=== PATIENT | male | born 1990 | race Caucasian/White ===

== ENCOUNTER 2016-02-27 18:06 | Emergency (ER) | payer OTHER ==
[2016-02-27 19:23] VITALS: BP 121/63
--- NOTE | 2016-02-27 20:16 | UC ---
HPI Wound/Suture Re-check - HPI Summary HPI Summary: pt presents with request for wound check and dressing change. Pt had pilonidal cyst surgery on 02/18/16. Has been having dressing changes done at [facility]. [facility] is not open today and patient is requesting dressing change with wound irrigation. - History Of Current Complaint Chief Complaint: UCWounds Stated Complaint: WOUND RECHECK Time Seen by Provider: 02/27/16 19:27 Hx Obtained From: Patient Onset/Duration: Sudden Onset, Lasting Days Severity: Mild - Allergies/Home Medications Allergies/Adverse Reactions: Allergies Allergy/AdvReac Type Severity Reaction Status Date / Time No Known Allergies Allergy Verified 02/27/16 19:23 Home Medications: Home Medications Acetaminop/Codeine 30 MG TAB* [Tylenol/Codeine 30 MG TAB*] PRN 02/27/16 [ History] Amoxicillin/Clavulanate TAB* [Augmentin TAB 500 mg*] 500 mg PO Q8H 02/27/16 [ History Confirmed 02/27/16] Multiple Vitamins W/ Minerals [Vitamins & Minerals] 1 tab PO 02/27/16 [History] Drew's Wort (Bend Perf [St Weiss Wort] 02/27/16 [History] Supplements* 02/27/16 [History] PMH/Surg Hx/FS Hx/Imm Hx Previously Healthy: Yes - Surgical History Surgical History: Yes Surgery Procedure, Year, and Place: PILONIDAL CYST SURGERY 2011 AND AGAIN - Family History Known Family History: Positive: Cardiac Disease - Social History Occupation: Student Lives: With Family Alcohol Use: Occasionally Substance Use Type: None Smoking Status (MU): Never Smoked Tobacco Review of Systems Constitutional: Negative Skin: Other - healing wound, with wound drain pilonidal Eyes: Negative ENT: Negative Respiratory: Negative Cardiovascular: Negative Gastrointestinal: Negative Genitourinary: Negative Motor: Negative Neurovascular: Negative Musculoskeletal: Negative Neurological: Negative Psychological: Negative All Other Systems Reviewed And Are Negative: Yes Physical Exam Triage Information Reviewed: Yes Appearance: Well-Appearing Vital Signs: Initial Vital Signs Temp 97.6 F 02/27/16 19:19 Pulse 54 02/27/16 19:19 Resp 16 02/27/16 19:19 BP 121/63 02/27/16 19:19 Pulse Ox 98 02/27/16 19:19 Vital Signs Reviewed: Yes Neck exam: Normal Respiratory Exam: Other Respiratory: Positive: No respiratory distress Musculoskeletal Exam: Normal Neurological Exam: Normal Psychological Exam: Normal Skin Exam: Other - packing and drain intact at pilonidal wound site. wound appears to be pink healthy without drainage or odor. Mild tenderness at wound site. Course/Dx - Course Course Of Treatment: Pt was instructed to return to [facility] for future dressing changes and follow up with Dr. Ag as directed.. Planin packing inserted without complication, wound irrigated with sterile saline, tegarderm placed over packing. - Differential Dx - Laceration/Wound Differential Diagnoses: Healing Wound, Other - dressing change Provider Diagnoses: healing wound. Dressing change. wound irrigation Discharge - Discharge Plan Condition: Stable Disposition: HOME Patient Education Materials: Acute Wound Care (ED) Referrals: [facility] PATTIE Alonzo [Medical Doctor] - Additional Instructions: Please continue to follow up with your PCP for wound care as directed.
== END 2016-02-27 20:25 | disposition home or self-care (01) ==
LOC: UCEAST 18:06
DX: Z48.01 Encounter for change or removal of surgical wound dressing (principal)
CPT/HCPCS: 99201; G0463